=== PATIENT | male | born 1985 | race Hispanic/Latino ===

== ENCOUNTER 2020-12-23 11:39 | Emergency (ER) | payer SELFPAY ==
[2020-12-23 11:52] VITALS: BP 125/80; PULSE 90; RESP 16; TEMP 36.6; O2SAT 99
--- NOTE | 2020-12-23 12:39 | ED_ITS ---
HPI - Ear Problem General Chief complaint: Ear Stated complaint: ear pain History of Present Illness HPI Narrative: This is a 35-year-old male presents with headache and dizziness and severe pain to his left ear states that the pain has been going on for over a week. Patient informed me that he has been taking some Tylenol and ibuprofen for the pain but it just continues to get worse Related Data Allergies Allergy/AdvReac Type Severity Reaction Status Date / Time No Known Allergies Allergy Verified 12/23/20 12:07 Review of Systems Review of Systems: Left ear pain PMFSH Comments At time as signature, I have reviewed and agree with nursing past medical, social, surgical and family history. Please see nursing chart for further information. There is no relevant family history pertinent to the presenting complaint. Exam Narrative: GENERAL: Ill-appearing, well-nourished, and in no acute distress. HEAD:Normocephalic EYES: PERRLA ENT: Nares clear, no rhinorrhea or epistaxis. normal left auditory canal unable to put otoscope in patient has drainage in ear painful trigeminal area throat drainage painful to touch earlobe CHEST: Clear to auscultation. HEART: Regular rate and rhythm. ABDOMEN: Soft, nontender, . EXTREMITIES: Normal range of motion SKIN: Warm, dry, no rash. NEURO: No focal deficits. Alert and oriented x3. Course Vital Signs Vital signs: Vital Signs Temperature 97.9 F 12/23/20 11:52 Pulse Rate 90 12/23/20 11:52 Respiratory Rate 16 12/23/20 11:52 Blood Pressure 125/80 12/23/20 11:52 Pulse Oximetry 99 12/23/20 11:52 Temperature 97.9 F 12/23/20 11:52 Pulse Rate 90 12/23/20 11:52 Respiratory Rate 16 12/23/20 11:52 Blood Pressure 125/80 12/23/20 11:52 Pulse Oximetry 99 12/23/20 11:52 Medical Decision Making Vital Signs Vital Signs: Vital Signs Temperature 97.9 F 12/23/20 11:52 Pulse Rate 90 12/23/20 11:52 Respiratory Rate 16 12/23/20 11:52 Blood Pressure 125/80 12/23/20 11:52 Pulse Oximetry 99 12/23/20 11:52 Temperature 97.9 F 12/23/20 11:52 Pulse Rate 90 12/23/20 11:52 Respiratory Rate 16 12/23/20 11:52 Blood Pressure 125/80 12/23/20 11:52 Pulse Oximetry 99 12/23/20 11:52 Discharge Plan Discharge Clinical Impression: Otitis externa Qualifiers: Otitis externa type: unspecified type Chronicity: acute Laterality: left Qualified Code(s): H60.502 - Unspecified acute noninfective otitis externa, left ear Patient Disposition: Home, Self-Care Condition: Stable Instructions: Antibiotic Form, Swimmer's Ear (ED) Additional Instructions: Do not get water in the ear put cotton swab in ear Patient Language: Cam[place]onian Prescriptions: New ofloxacin 0.3 % drops 10 drp EACH EAR DAILY 7 Days Qty: 10 RF: 1 ibuprofen 600 mg tablet 600 mg PO TID PRN (Reason: fever or pain) Qty: 30 RF: 0 Follow-up/Referrals: UNKNOWN,DOCTOR [Primary Care Provider] - Stand Alone Forms: Work/School Release IP Time of Disposition: 12:49
== END 2020-12-23 12:55 | disposition home or self-care (01) ==
PROVIDERS: Emergency Provider Nurse Practitioner Family
DX: H60.502 Unspecified acute noninfective otitis externa, left ear (principal)
CPT/HCPCS: 99203; G0463